=== PATIENT | female | born 1985 | race Caucasian/White ===

== ENCOUNTER → 2019-06-01 | Day surgery (SDC) | payer BC ==
[~2019-06-01] VITALS: Ht 157.4 cm; Wt 47.2 kg
[~2019-06-01] MED LIST: Percocet 325 MG1 TAB PO; ZOFRAN4 MG PO
[2019-06-01 09:10] VITALS: BP 100/56
[2019-06-01 11:46] VITALS: BP 104/47
[2019-06-01 11:59] VITALS: BP 91/44
[2019-06-01 12:15] VITALS: BP 99/46
== END | disposition home or self-care (01) ==
LOC: SDC 05-28 10:15
DX: K59.00 Constipation, unspecified (principal); F17.210 Nicotine dependence, cigarettes, uncomplicated; Z98.890 Other specified postprocedural states

== ENCOUNTER 2019-07-24 01:00 | Inpatient (IN) | payer BC ==
[2019-07-20 13:30] VITALS: BP 94/52
[2019-07-20 14:19] VITALS: BP 109/66
[2019-07-24] VITALS (9 sets, daily range): BP systolic 89–119; BP diastolic 45–65
[~2019-07-24] VITALS: Ht 157.4 cm; Wt 47.2 kg
--- NOTE | 2019-07-24 13:30 | NUR ---
The assessment has been completed. TOMER DOMINIQUE
--- NOTE | 2019-07-24 13:32 | NUR ---
POST OP ABDOMINAL WOUNDS ARE CLEAN, DRY, INTACT AND CLOSED WITH SKIN GLUE. NO DRAINS NOTED.
--- NOTE | 2019-07-24 13:43 | NUR ---
Time: 1329 A 33 year old FEMALE admitted to under services of DR. JOHN WINTERS,TAMELA BELL. Pt. arrived via bed from [place]. Chief complaint: MALROTATION/ADHESION OF BOWEL,APPENDICITIS. HISSOM,TOMER
--- NOTE | 2019-07-24 13:51 | NUR ---
PT COMPLAINS OF 9/10 ABD PAIN. MEDICATED PER ORDER. WILL MONITOR FOR RELIEF. VOICES NO OTHER CONCERNS AT THIS TIME. RESTING IN BED. CALL LIGHT WITHIN REACH.
--- NOTE | 2019-07-24 14:30 | NUR ---
DILAUDID INEFFECTIVE. MEDICATED WITH NORCO AT THIS TIME. WILL MONITOR. RESTING IN BED. CALL LIGHT WITHIN REACH.
--- NOTE | 2019-07-24 15:17 | NUR ---
SPOKE WITH DR LOPEZ REGARDING PATIENTS CONTINUED PAIN. STATED TO GIVE 2MG IV MORPHINHE NOW AND THEN Q4H NEEDED.
--- NOTE | 2019-07-24 15:37 | NUR ---
MEDICATED WITH MORPHINE. WILL MONITOR FOR RELIEF. RESTING IN BED. CALL LIGHT WITHIN REACH. FAMILY AT BEDSIDE.
--- NOTE | 2019-07-24 16:02 | NUR ---
PT RESTING QUIETLY IN BED. VITALS SIGNS STABLE. NO S/S OF DISTRESS NOTED. FAMILY AT BED SIDE. VOICES NO CONCERNS/NEEDS AT THIS TIME. CALL LIGHT WITIN REACH.
--- NOTE | 2019-07-24 19:42 | NUR ---
PATIENT LAYING IN BED WITH FAMILY AT BEDSIDE. PRN MORPHINE GIVEN PER ORDER FOR C/O 10/10 PAIN IN HER ABDOMEN. PATIENT GOT UP AND WALKED TO THE RESTROOM. BOWEL SOUNDS NORMOATIVE. PATIENT STATES SHE IS NOT PASSING ANY GAS YET. CALL LIGHT WITHIN REACH. WILL MONITOR FOR EFFECTIVENESS.
--- NOTE | 2019-07-24 20:27 | NUR ---
PATIENT STATED THE PRN MORPHINE WAS HELPING HER PAIN.
--- NOTE | 2019-07-24 21:33 | NUR ---
PATIENT MEDICATED WITH PRN NORCO FOR C/O 10 PAIN IN HER ABDOMEN AT THE INCISION. EDUCATED PATIENT TO CONTINUE TO COUGH AND DEEP BREATHE. ALSO EDUCATED PATIENT ABOUT USING A BLANKET TO SPLINT WHEN DEEP BREATHING OR GETTING UP. PATIENT VERBALIZED UNDERSTANDING. WILL MONITOR FOR EFFECTIVENESS.
--- NOTE | 2019-07-24 22:15 | NUR ---
PRN NORCO EFFECTIVE AT HELPING PAIN PER PATIENT.
--- NOTE | 2019-07-24 23:56 | NUR ---
PATIENT MEDICATED WITH PRN MORPHINE FOR C/O 10/10 PAIN IN HER ABDOMEN. WILL MONITOR FOR EFFECTIVENESS.
[2019-07-25] VITALS: BP 108/56
--- NOTE | 2019-07-25 00:45 | NUR ---
PER PATIENT PRN MORPHINE "HELPED A LITTLE."
--- NOTE | 2019-07-25 03:55 | NUR ---
PATIENT MEDICATED WITH PRN NORCO FOR C/O 10/10 ABDOMINAL PAIN. WILL MONITOR FOR EFFECTIVENESS.
[2019-07-25 04:40] VITALS: BP 114/72
--- NOTE | 2019-07-25 04:54 | NUR ---
PATIENT STATED THE NORCO DID NOT HELP HER PAIN. PATIENT MEDICATED WITH PRN MORPHINE ORDERED. CALL PLACED TO DR. LOPEZ ABOUT PAIN MEDICINE BEING INEFFECTIVE. AWAITING A CALL BACK.
--- NOTE | 2019-07-25 05:16 | NUR ---
SPOKE WITH DR. LOPEZ ABOUT PATIENTS PAIN. ORDER RECEIVED FOR 30 MG IV TORADOL ONCE.
--- NOTE | 2019-07-25 05:36 | NUR ---
PATIENT STATED THE PRN MORPHINE DID NOT HELP HER PAIN. PATIENT MEDICATED WITH PRN TORADOL PER ORDER. WILL MONITOR FOR EFFECTIVENESS.
--- NOTE | 2019-07-25 06:04 | NUR ---
PATIENT STATED THE IV TORADOL HELPED HER PAIN. SHE RATES HER PAIN A 6/10.
[2019-07-25 08:00] VITALS: BP 98/57
--- NOTE | 2019-07-25 08:21 | NUR ---
MORPHINE GIVEN FOR POST-OP ABD PAIN RATED 10/10. ICE PACK TO ABD. SITES GLUD SHUT. CALL LIGHT WITHIN REACH. IN SEE PT. WILL MONITOR.
--- NOTE | 2019-07-25 10:23 | NUR ---
WET END OPERATOR PUMP SET UP. PT UNDERSTANDS BOLUS DEMAND SETTINGS. REQUESTING TORADOL IN ONE HR.
--- NOTE | 2019-07-25 11:21 | NUR ---
CALLED TO ROOM FOR TORADOL. STATES PAIN TO ABD IS 6/10. WILL MONITOR. CALL LIGHT WITHIN REACH. FAMILY AT BEDSIDE. AWAITING LUNCH TO ARRIVE.
[2019-07-25 12:00] VITALS: BP 104/66
--- NOTE | 2019-07-25 13:12 | NUR ---
SLEEPING. NO VOICED COMPLAINTS. FAMILY AT BEDSIDE. RESPERS EASY/REGULAR. CALL LIGHT WITHIN REACH.
--- NOTE | 2019-07-25 14:41 | NUR ---
TOLERATED FIRST SOLID MEAL. DENIES NAUSEA/VOMITING. WILL CONTINUE TO MONITOR.
--- NOTE | 2019-07-25 15:23 | NUR ---
REQUESTING PERCOCET INSTEAD OF USING MORPHINE PUMP. 05/12 AND "PIERCING IN THE BELLY BUTTON AREA." SEE MAR. CALL LIGHT WITHIN REACH. VISITORS BEDSIDE. WILL MONITOR.
--- NOTE | 2019-07-25 16:11 | NUR ---
ABD PAIN RATED 5/10 AFTER PERCOCET. CALL LIGHT WITHIN REACH. WILL CONTINUE TO MONITOR. MORPHINE LUNCHROOM FOOD SERVICE SUPERVISOR PUMP AT BEDSIDE, HANDHELD BUTTON ON BED.
--- NOTE | 2019-07-25 17:55 | NUR ---
CALLED TO ROOM FOR SHARP ABD PAIN RATED 10/10, TEARS NOTED IN EYES. REQUESTING TORADOL. SEE MAR. INSTRUCTED TO PUSH MORPHINE PUMP. REITERATED PAIN MGMT WITH PUMP VS. OTHER PRN PAIN MEDS ON ORDER.
--- NOTE | 2019-07-25 18:13 | NUR ---
STILL REPORTING PAIN AFTER TORADOL AND MORPHINE. SAID SHE WILL TRY MORPHINE AGAIN WHEN ABLE TO. WILL CONTINUE TO MONITOR.
--- NOTE | 2019-07-25 18:44 | NUR ---
REPORTS PUSHING CLERK TYPIST PUMP AGAIN AND NOW HAS RELIEF. RELAXED DEMEANOR AT THIS TIME. JOKING AND LAUGHING. CALL LIGHT WITHIN REACH. SPOUSE AT BEDSIDE.
[2019-07-25 20:00] VITALS: BP 103/63
--- NOTE | 2019-07-25 21:25 | NUR ---
PATIENT REQUESTING PAIN MEDICATION FOR ABDOMINAL PAIN RATED 7/10 ON 0/10 SCALE. PERCOCET ADMINISTERED PRESCRIBED. PATIENT HAS NOT USED MORPHINE PATTERN CHART WRITER FOR A FEW HOURS. WILL MONITOR FOR EFFECTIVENESS.
--- NOTE | 2019-07-25 22:25 | NUR ---
PATIENT STATES THAT PERCOCET WAS EFFECTIVE FOR ABDOMINAL PAIN, RATES 4/10 AT THIS TIME. WILL MONITOR.
--- NOTE | 2019-07-25 22:45 | NUR ---
PATIENT UP TO BATHROOM. STATES THAT SHE DID PASS GAS.
[2019-07-26] VITALS: BP 98/60
--- NOTE | 2019-07-26 01:15 | NUR ---
PATIENT REQUESTING PAIN MEDICATION FOR ABDOMINAL PAIN RATED 6/10 ON 0/10 SCALE. TORODOL ADMINISTERED PRESCRIBED. PATIENT HAS NOT USED MORPHONE FIELD RESEARCH ASSISTANT. WILL MONITOR FOR EFFECTIVENESS.
--- NOTE | 2019-07-26 02:15 | NUR ---
PATIENT RESTING WITH EYES CLOSED AT THIS TIME. RESPIRATIONS EASY AND UNLABORED. CALL LIGHT WITHIN REACH. WILL MONITOR FOR EFFECTIVENESS.
--- NOTE | 2019-07-26 04:36 | NUR ---
PATIENT REQUESTING PAIN MEDICATION FOR ABDOMINAL PAIN RATED 7/10 ON 0/10 SCALE. PERCOCET ADMINISTERED PRESCRIBED. PATIENT HAS USED MORPHINE PUMP FOR 1MG- PATIENT STATED MINIMAL RELIEF FROM MORPHINE. WILL MONITOR FOR EFFECTIVENESS.
--- NOTE | 2019-07-26 05:36 | NUR ---
PATIENT STATES THAT PERCOCET WAS EFFECTIVE FOR ABDOMINAL PAIN, NOW RATES PAIN 4/10 ON 0/10. PATIENT REMAINS ON MORPHINE MANAGER CONFIGURATION NEEDED- PT REPORTS NO USE SINCE 3 AM.WILL MONITOR FOR EFFECTIVENESS.
[2019-07-26 06:38] LABS: BASO % 0.3 % (0.0-1.0); EOS # 0.2 10*3/uL (0.0-0.4); EOS % 2.6 % (1.0-4.0); HEMATOCRIT 32.1 % (37.0-47.0); HEMOGLOBIN 10.5 g/dl (12.0-16.0); LYMPH # 1.4 10*3/uL (1.3-4.4); LYMPH % 18.4 % (27.0-41.0); MEAN CELL VOLUME 92.2 fl (81.0-99.0); MEAN CORPUSCULAR HGB 30.2 pg (27.0-31.0); MEAN CORPUSCULAR HGB CONC 32.7 g/dl (33.0-37.0); MEAN PLATELET VOLUME 10.9 fl (9.6-12.3); MONO # 0.9 10*3/uL (0.1-1.0); MONO % 11.5 % (3.0-9.0); NEUT % 66.8 % (47.0-73.0); PLATELET COUNT AUTOMATED 186 10*3/uL (130-400); RED BLOOD COUNT 3.48 10*6/uL (4.10-5.10); WHITE BLOOD COUNT 7.6 10*3/uL (4.8-10.8)
[2019-07-26 06:58] LABS: ALBUMIN 2.7 gm/dl (3.1-4.5); ALKALINE PHOSPHATASE 39 U/L (45-117); BUN 11 mg/dl (7-24); CHLORIDE 109 mmol/L (98-107); CREATININE 0.65 mg/dL (0.55-1.02); POTASSIUM 3.8 mmol/L (3.5-5.1); SGOT/AST 16 IU/L (3-35); SGPT/ALT 13 U/L (12-78); SODIUM 140 mmol/L (136-145); TOTAL PROTEIN 5.8 gm/dL (6.4-8.2)
[2019-07-26 08:00] VITALS: BP 101/58
--- NOTE | 2019-07-26 08:04 | NUR ---
STATES PAIN IS TOLERABLE AT THIS TIME. RE-EDUCATED ON PAIN MGMT. PT VOICING THAT SHE WOULD PREFER TO USE TORADOL AND PERCOCETS TO MANAGE PAIN THE BEST SHE CAN TODAY IN PREPARATION FOR DISCHARGE. INFORMED HER THAT MORPHINE ENDOSCOPY TECHNICAN IS STILL AVAILABLE NEEDED. BSX4 NORMOACTIVE, INCISION SITES GLUED SHUT AND WELL APPROXIMATED. PASSING FLATUS. WILL CONTINUE TO MONITOR. ICE PACK TO ABDOMEN NOTED.
[2019-07-26] MEDS ORDERED: Percocet 325 MG1 TAB PO (12:58)
[2019-07-26] MEDS ORDERED: ZOFRAN4 MG PO (12:58)
--- NOTE | 2019-07-26 14:37 | NUR ---
Discharge instructions reviewed with patient/family. Patient receptive and verbalizes understanding. Follow-up care arranged. Written instructions given to patient/family. JAZZMINE BARRIOS
== END 2019-07-26 14:37 | disposition home or self-care (01) | DRG 330 ==
LOC: SDC 01:00 → 4E 11:03 → SDC 14:00 → 4E 07-25 11:04
PROVIDERS: Family Medicine
PROC: 0WJG4ZZ Inspection of Peritoneal Cavity, Percutaneous Endoscopic Approach (ICD-10-PCS; principal; 2019-07-24)
PROC: 0DTJ0ZZ Resection of Appendix, Open Approach (ICD-10-PCS; principal; 2019-07-24)
PROC: 0DS80ZZ Reposition Small Intestine, Open Approach (ICD-10-PCS; principal; 2019-07-24)
PROC: 0DN80ZZ Release Small Intestine, Open Approach (ICD-10-PCS; principal; 2019-07-24)
DX: Q43.3 Congenital malformations of intestinal fixation (principal); I97.191 Other postprocedural cardiac functional disturbances following other surgery; R06.82 Tachypnea, not elsewhere classified; I95.9 Hypotension, unspecified; F17.210 Nicotine dependence, cigarettes, uncomplicated; K59.04 Chronic idiopathic constipation; F12.10 Cannabis abuse, uncomplicated; G89.18 Other acute postprocedural pain; R00.1 Bradycardia, unspecified; Y83.8 Other surgical procedures as the cause of abnormal reaction of the patient, or of later complication, without mention of misadventure at the time of the procedure; Y92.238 Other place in hospital as the place of occurrence of the external cause; Z71.6 Tobacco abuse counseling; Z98.891 History of uterine scar from previous surgery; Z82.49 Family history of ischemic heart disease and other diseases of the circulatory system; Z82.0 Family history of epilepsy and other diseases of the nervous system; Z82.3 Family history of stroke